=== PATIENT | male | born 1960 | race Caucasian/White ===

== ENCOUNTER 2017-01-30 14:44 | Inpatient (IN) ==
[2017-01-30] MEDS ORDERED: 0.9 % Sodium Chloride 1,000 ML IVC ONE ×3 (15:19→18:45)
--- NOTE | 2017-01-30 15:27 | Emergency Department Note ---
Disposition Clinical Impression: MICKY (acute kidney injury), Dehydration, Abdominal pain Disposition: Admitted As Inpatient Referrals: NO,PCP [Non-Partnered Physician] - Forms: Work/School Release, ED Satisfaction Letter Abdominal Pain HPI - General Chief Complaint: ED Abdominal Pain Stated Complaint: ABD / Back Pain Time Seen by Provider: 01/30/17 15:15 Source: patient Mode of arrival: ambulatory Limitations: no limitations Nursing Notes Reviewed: Yes Vital Signs Reviewed: Yes - History of Present Illness Pt Subjective Complaint: abdominal pain Onset (ago): day(s) (3) Consistency: intermittent Location: diffuse Pain Scale: 10 Quality: dull Radiation: none Improves with: nothing Worsens with: nothing Associated symptoms: Reports: other (States he has not urinated in 3 days) - Related Data Home Medications Medication Instructions Recorded Confirmed Albuterol Sulfate [Albuterol 1 - 2 puff IH Q6H 05/13/16 05/24/16 Inhaler] Beclomethasone Diprop 40mcg [QVAR 1 puff IH BID 05/13/16 05/24/16 40 mcg] Ferrous Sulfate 325 mg PO DAILY 05/13/16 05/24/16 Gabapentin 800 mg PO QID 05/13/16 05/24/16 Lisinopril [Zestril] 10 mg PO DAILY 05/13/16 05/24/16 Zolpidem [Ambien] 10 mg PO HS 05/13/16 05/24/16 metFORMIN [Glucophage] 1,000 mg PO BID 05/13/16 05/24/16 Previous Rx's Medication Instructions Recorded hydrOXYzine HCl [Hydroxyzine HCl] 25 mg PO BID PRN #60 tab 05/14/16 Metoclopramide [Reglan] 10 mg PO Q6HR PRN #30 tablet 05/27/16 Omeprazole [PriLOSEC] 20 mg PO BID #30 capsule. 05/27/16 OxyCODONE Immed Rel [Roxicodone 5 5 mg PO Q6HR PRN #14 tablet 05/27/16 MG] Ondansetron [Zofran ODT] 8 mg SL Q4HR #7 tab.rapdis 08/03/16 OxyCODONE/APAP 5/325 [Percocet 2 each PO Q6HR PRN #15 tablet 08/03/16 5/325 MG] Allergies Allergy/AdvReac Type Severity Reaction Status Date / Time Penicillins [PCN] Allergy Rash Verified 01/30/17 16:11 acetaminophen [From Tylenol] AdvReac Nausea Verified 01/30/17 16:11 propoxyphene AdvReac Nausea Verified 01/30/17 16:11 [From Darvocet-N] tramadol AdvReac See Verified 01/30/17 16:11 Comments All systems ED: reviewed and negative except as stated. Constitutional: Denies: fever, chills, weakness Gastrointestinal: Denies: vomiting Abdominal Pain PMH - Past Medical History Medical history: Reports: diabetes, GERD, hypertension Male Surgical History: Reports: appendectomy Psychiatric history: Reports: anxiety, depression, prior suicide attempt, previous psychiatric hospitalization - Social History Smoking status: Current every day smoker Alcohol use: Reports: none Drug use: Reports: marijuana Physical Exam - General Limitations: no limitations General appearance: alert, in no apparent distress - Head Head exam: atraumatic, normocephalic, normal inspection - Eye Eye exam: Present: normal appearance, PERRL, EOMI - Expanded Eye Exam Pupils: Left: reactive - ENT ENT exam: mucous membranes dry - Expanded ENT Exam External ear exam: Present: normal external inspection Mouth exam: Present: normal external inspection Teeth exam: Present: normal inspection Throat exam: Present: normal inspection - Neck Neck exam: Present: normal inspection, full ROM, trachea midline - Chest Chest inspection: Present: normal inspection, symmetric chest wall rise - Respiratory Respiratory exam: Present: normal lung sounds bilaterally - Cardiovascular Cardiovascular exam: Present: regular rate, normal rhythm, normal heart sounds - Abdominal Exam Abdominal exam: Present: soft Abdominal tenderness: Present: LLQ, mild - Extremities Exam Extremities exam: Present: normal inspection, full ROM. Absent: tenderness, pedal edema - Expanded Upper Extremity Exam Shoulder exam: Present: normal inspection, full ROM Arm exam: Present: normal inspection, full ROM Elbow exam: Present: normal inspection, full ROM Forearm/Wrist exam: Present: normal inspection, full ROM Hand exam: Present: normal inspection, full ROM Vascular exam: Normal: capillary refill, radial pulse - Expanded Lower Extremity Exam Hip/Pelvis exam: Present: normal inspection, full ROM Upper leg exam: Present: normal inspection, full ROM Knee exam: Present: normal inspection, full ROM Lower leg exam: Present: normal inspection, full ROM Ankle exam: Present: normal inspection, full ROM Foot/toe exam: Present: normal inspection, full ROM Neurovascular/Tendon exam: Absent: motor deficit, sensory deficit, tendon deficit - Back Exam Back exam: Present: normal inspection, full ROM. Absent: tenderness - Neurological Exam Neurological exam: Present: alert, oriented X3 - Expanded Neurological Exam Patient oriented to: Present: person, place, time Coma Scale Eye Opening: Spontaneous Coma Scale Motor Response: Obeys Commands Coma Scale Verbal Response: Oriented Coma Scale Total: 15 - Psychiatric Psychiatric exam: Present: normal affect, normal mood - Skin Skin exam: Present: warm, dry, intact, normal color Course Vital Signs Temperature 97.4 F L 01/30/17 14:53 Pulse Rate 89 01/30/17 14:53 Respiratory Rate 18 01/30/17 14:53 Blood Pressure 98/51 01/30/17 14:53 O2 Sat by Pulse Oximetry 94 01/30/17 14:53 Temperature 97.4 F L 01/30/17 14:53 Pulse Rate 86 01/30/17 18:18 Respiratory Rate 20 01/30/17 18:18 Blood Pressure 114/59 01/30/17 18:18 O2 Sat by Pulse Oximetry 96 01/30/17 18:18 Oxygen Delivery Oxygen Delivery Room Air Abdominal Pain - Lab Data Result diagrams: 01/30/17 15:57 01/30/17 16:46 Lab Results 01/30/17 01/30/17 01/30/17 Range/Units 15:57 16:46 16:46 WBC 14.7 H (4.3-11.1) K/mcL RBC 4.70 (4.19-5.50) M/mcL Hgb 13.2 (12.9-16.9) g/dL Hct 41.4 (37.5-50.1) % MCV 88.1 (83.0-100.0) fL MCH 28.1 (28.0-33.3) pg MCHC 31.9 (31.6-35.5) g/dL RDW 14.2 (11.5-14.5) % Plt Count 203 (140-400) K/mcL MPV 11.8 (9.4-12.4) fL Immature Gran % 0.3 (0-4) % Seg Neutrophils % 64.9 % Lymphocytes % 23.1 % Monocytes % 8.2 % Eosinophils % 3.0 % Basophils % 0.5 % Neutrophils # 9.5 H (1.6-8.9) K/mcL Lymphocytes # 3.4 (0.6-4.6) K/mcL Monocytes # 1.2 (0.0-1.3) K/mcL Eosinophils # 0.4 (0.0-0.6) K/mcL Basophils # 0.1 (0.0-0.2) K/mcL PT 11.9 (9.4-12.1) Seconds INR 1.1 APTT 29.4 (26.0-36.0) Seconds Sodium 137 (136-145) mEq/L Potassium 4.5 (3.5-4.5) mEq/L Chloride 95 L (98-109) mEq/L Carbon Dioxide 26 (19-29) mEq/L BUN 58 H (8-26) mg/dL Creatinine 12.93 H (0.72-1.25) mg/dL Est GFR ( Amer) 5 L (> 60) Est GFR (Non-Af Amer) 4 L (> 60) BUN/Creatinine Ratio 4 L (6-26) Glucose 106 H (70-99) mg/dL Calculated Osmolality 301 H (280-300) Lactic Acid (0.5-2.2) mmol/L Calcium 9.3 (8.6-10.8) mg/dL Total Bilirubin 0.5 (0.2-1.2) mg/dL Direct Bilirubin 0.2 (0.0-0.5) mg/dL Indirect Bilirubin 0.3 (0.0-1.2) mg/dL AST 8 (5-34) Units/L ALT < 6 (0-55) Units/L Alkaline Phosphatase 75 (38-126) Units/L Troponin I (0-0.03) ng/mL Serum Total Protein 8.1 (6.0-8.3) g/dL Albumin 3.8 (3.5-5.0) g/dL Globulin 4.3 H (2.4-3.5) g/dL Albumin/Globulin Ratio 0.9 L (1.1-2.2) Amylase 46 (25-125) Units/L Lipase 19 (8-78) Units/L 01/30/17 01/30/17 Range/Units 16:46 16:46 WBC (4.3-11.1) K/mcL RBC (4.19-5.50) M/mcL Hgb (12.9-16.9) g/dL Hct (37.5-50.1) % MCV (83.0-100.0) fL MCH (28.0-33.3) pg MCHC (31.6-35.5) g/dL RDW (11.5-14.5) % Plt Count (140-400) K/mcL MPV (9.4-12.4) fL Immature Gran % (0-4) % Seg Neutrophils % % Lymphocytes % % Monocytes % % Eosinophils % % Basophils % % Neutrophils # (1.6-8.9) K/mcL Lymphocytes # (0.6-4.6) K/mcL Monocytes # (0.0-1.3) K/mcL Eosinophils # (0.0-0.6) K/mcL Basophils # (0.0-0.2) K/mcL PT (9.4-12.1) Seconds INR APTT (26.0-36.0) Seconds Sodium (136-145) mEq/L Potassium (3.5-4.5) mEq/L Chloride (98-109) mEq/L Carbon Dioxide (19-29) mEq/L BUN (8-26) mg/dL Creatinine (0.72-1.25) mg/dL Est GFR ( Amer) (> 60) Est GFR (Non-Af Amer) (> 60) BUN/Creatinine Ratio (6-26) Glucose (70-99) mg/dL Calculated Osmolality (280-300) Lactic Acid 1.8 (0.5-2.2) mmol/L Calcium (8.6-10.8) mg/dL Total Bilirubin (0.2-1.2) mg/dL Direct Bilirubin (0.0-0.5) mg/dL Indirect Bilirubin (0.0-1.2) mg/dL AST (5-34) Units/L ALT (0-55) Units/L Alkaline Phosphatase (38-126) Units/L Troponin I 0.02 (0-0.03) ng/mL Serum Total Protein (6.0-8.3) g/dL Albumin (3.5-5.0) g/dL Globulin (2.4-3.5) g/dL Albumin/Globulin Ratio (1.1-2.2) Amylase (25-125) Units/L Lipase (8-78) Units/L Critical Care Time Critical Care Time: Yes Total Critical Care Time: 40 Attestation: Critical care performed: Time is exclusive of separately billable procedures. Time includes: direct patient care, patient reassessment, coordination of patient care, interpretation of data (laboratory data, radiology data, and respiratory data), review of patient's medical records, medical consultation and documentation of patient care. Procedures included in critical care time: Procedures excluded from critical care time:
[2017-01-30] MEDS ORDERED: Ondansetron 4 MG/2 ML VIAL IVP ONE (15:55)
[2017-01-30] MEDS ORDERED: *HR* HYDROmorphone (PF) 1 MG/ML SYRINGE IVP ONE (15:55)
[2017-01-30 16:09] LABS: Basophils # 0.1 K/mcL (0.0-0.2); Basophils % 0.5 %; Eosinophils # 0.4 K/mcL (0.0-0.6); Hematocrit 41.4 % (37.5-50.1); Hemoglobin 13.2 g/dL (12.9-16.9); Immature Granulocytes % 0.3 % (0-4); Lymphocytes # 3.4 K/mcL (0.6-4.6); Lymphocytes % 23.1 %; Mean Corpuscular HGB Conc 31.9 g/dL (31.6-35.5); Mean Corpuscular Hemoglobin 28.1 pg (28.0-33.3); Mean Corpuscular Volume 88.1 fL (83.0-100.0); Mean Platelet Volume 11.8 fL (9.4-12.4); Monocytes # 1.2 K/mcL (0.0-1.3); Monocytes % 8.2 %; Neutrophils # 9.5 K/mcL (1.6-8.9); Platelet Count 203 K/mcL (140-400); Red Cell Distribution Width 14.2 % (11.5-14.5); Segmented Neutrophils % 64.9 %
[2017-01-30] MEDS ORDERED: 0.9 % Sodium Chloride 1,000 ML ONE (16:28)
[2017-01-30 17:09] LABS: Albumin 3.8 g/dL (3.5-5.0); Albumin/Globulin Ratio 0.9 (1.1-2.2); Alkaline Phosphatase 75 Units/L (38-126); Amylase 46 Units/L (25-125); Aspartate Amino Transferase 8 Units/L (5-34); BUN/Creatinine Ratio 4 (6-26); Bilirubin,Direct 0.2 mg/dL (0.0-0.5); Bilirubin,Indirect 0.3 mg/dL (0.0-1.2); Bilirubin,Total 0.5 mg/dL (0.2-1.2); Blood Urea Nitrogen 58 mg/dL (8-26); Calcium 9.3 mg/dL (8.6-10.8); Carbon Dioxide 26 mEq/L (19-29); Chloride 95 mEq/L (98-109); Globulin 4.3 g/dL (2.4-3.5); Glucose 106 mg/dL (70-99); Lipase 19 Units/L (8-78); Osmolality,Calculated 301 (280-300); Potassium 4.5 mEq/L (3.5-4.5); Sodium 137 mEq/L (136-145); Total Protein 8.1 g/dL (6.0-8.3); eGFR For African Americans 5 (> 60); eGFR For Non-African Americans 4 (> 60)
[2017-01-30 17:10] LABS: Alanine Aminotransferase < 6 Units/L (0-55)
[2017-01-30 17:25] LABS: INR 1.1; Prothrombin Time 11.9 Seconds (9.4-12.1)
[2017-01-30 17:27] LABS: Activated Partial Thrombo Time 29.4 Seconds (26.0-36.0)
--- NOTE | 2017-01-30 20:31 | Internal Med History&Physical ---
Date of Encounter: 01/30/17 Time of Encounter: 20:29 Assessment and Plan (1) Nausea & vomiting Current visit: No Status: Acute Unclear etiology at this time, but patient has had intermittent issues with this for years and has seen GI as outpatient Likely exacerbated by GERD/victoriano's esophagus in setting of gastroparesis due to uncontrolled diabetes Cannot rule out cannabinoid hyperemesis syndrome, will obtain UDS He may benefit from gastric emptying study Make NPO for now and support with IVF, PPI, anti-emetics Qualifiers: Vomiting type: unspecified Vomiting Intractability: unspecified Qualified Code(s): R11.2 - Nausea with vomiting, unspecified (2) MICKY (acute kidney injury) Current visit: Yes Status: Acute Cr upon admission was 12.93 and he does not have any baseline renal insufficiency Likely pre-renal etiology in setting of dehydration from nausea/vomiting Obtain UA, urine studies, monitor I/O's (3) Enteritis Current visit: Yes Status: Suspected CT scan demonstrated mild inflammation near terminal ileum, which does not correspond to patient's location of pain No indication for antibiotics at this time, but will support with IVF, analgesics (4) Non-insulin dependent type 2 diabetes mellitus Current visit: Yes Status: Chronic Stop hold diabetic medications while inpatient on low dose SSI ACHS accuchecks Last a1c checked in May was 6.1, will recheck in AM (5) Hypertension Current visit: Yes Status: Chronic Blood pressures stable since admission Will hold Lisinopril in setting of MICKY Qualifiers: Qualified Code(s): I10 - Essential (primary) hypertension (6) DVT prophylaxis Current visit: Yes Status: Acute Heparin 5000 units BID Internal Medicine - H&P: HPI Admitted From: Home Plans for Post Hospital Care: Home History of present illness: Mr. Shaffer is a 56 year old male who presents to emergency department with nausea, vomiting and abdominal pain. He said the nausea and vomiting started about 3 days ago and he developed diffuse abdominal pain that was relieved with vomiting. He states the vomit has been constant throughout the day and is nonbloody and nonbilious and "looks like Mountain Dew". He admits to drinking 8 -12 cans of Mountain Dew a day and is aware he needs to cut down. Of note, he has also not had any urine output in the last 3 days, and only had small amount since admission. He did admit to having multiple ER visits for abdominal pain, and attributes symptoms of being dehydrated and GERD. He denies any problems with his kidneys in the past and has not had any stones as well. Patient denies any fever, chest pain, shortness of breath, constipation, diarrhea. He has not had any recent surgeries, and only had an appendectomy when he was younger. Denies any recent changes in medications or diet. Past Med Surg Social Fam HX - Past Medical History Medical history: COPD, diabetes, GERD, hypertension Psychiatric history: anxiety, depression, prior suicide attempt, previous psychiatric hospitalization - Past Surgical History Surgical History: other - Social History Smoking Status: Current every day smoker Packs per day: 1 Smokeless Tobacco Status: No Alcohol use: none Drug use: marijuana Internal Medicine - H&P: Meds Albuterol Sulfate [Albuterol Inhaler] 1 - 2 puff IH Q6H 05/13/16 [History] Beclomethasone Diprop 40mcg [QVAR 40 mcg] 1 puff IH BID 05/13/16 [History] Ferrous Sulfate 325 mg PO DAILY 05/13/16 [History] Gabapentin 800 mg PO QID 05/13/16 [History] Lisinopril [Zestril] 10 mg PO DAILY 05/13/16 [History] Zolpidem [Ambien] 10 mg PO HS 05/13/16 [History] metFORMIN [Glucophage] 1,000 mg PO BID 05/13/16 [History] hydrOXYzine HCl [Hydroxyzine HCl] 25 mg PO BID PRN #60 tab 05/14/16 [Rx] Metoclopramide [Reglan] 10 mg PO Q6HR PRN #30 tablet 05/27/16 [Rx] Omeprazole [PriLOSEC] 20 mg PO BID #30 capsule. 05/27/16 [Rx] OxyCODONE Immed Rel [Roxicodone 5 MG] 5 mg PO Q6HR PRN #14 tablet 05/27/16 [Rx] Ondansetron [Zofran ODT] 8 mg SL Q4HR #7 tab.rapdis 08/03/16 [Rx] OxyCODONE/APAP 5/325 [Percocet 5/325 MG] 2 each PO Q6HR PRN #15 tablet 08/03/16 [Rx] Allergies Penicillins [PCN] Allergy (Verified 01/30/17 16:11) Rash acetaminophen [From Tylenol] Adverse Reaction (Verified 01/30/17 16:11) Nausea propoxyphene [From Darvocet-N] Adverse Reaction (Verified 01/30/17 16:11) Nausea tramadol Adverse Reaction (Verified 01/30/17 16:11) See Comments PATIENT STATES THAT THIS MEDICATION MAKES HIM "JITTERY" All Systems PM: A 10-system review of systems was performed and is negative for pertinent findings except as documented above in the HPI. - Constitutional Constitutional: chills, no fever(s), no night sweats - EENT Eyes: no change in vision, no discharge, no pain, no photophobia Ears: no ear discharge, no ear pain, no tinnitus Nose, mouth and throat: no dysphagia, no nasal discharge, no neck pain, no sore throat - Cardiovascular Cardiovascular ROS IM: no chest pain, no diaphoresis, no dyspnea, no lightheadedness, no palpitations, no syncope - Respiratory Respiratory: no cough, no dyspnea, no wheezing, no excessive phlegm production - Gastrointestinal Gastrointestinal: abdominal pain (vesta-umbilical), nausea, vomiting, no diarrhea , no hematemesis, no hematochezia, no melena - Musculoskeletal Musculoskeletal ROS IM: back pain (low back, left sided), no numbness, no tingling - Integumentary Integumentary IM: no rash, no unusual bruising - Neurological Neurological ROS: no confusion, no convulsions, no focal weakness, no numbness, no tingling, no tremor(s) - Hematologic/Lymphatic Hematologic/Lymphatic: no easy bruising - Constitutional Vitals: Temp Pulse Resp BP Pulse Ox 97.5 F L 89 18 137/82 93 01/30/17 19:44 01/30/17 19:44 01/30/17 19:44 01/30/17 19:44 01/30/17 19:44 General appearance: Present: cooperative, pleasant, no acute distress, obese, answers questions appropriately - Head Head exam: Present: atraumatic, normocephalic - Eye Eye exam: Present: PERRL, conjuntiva pink, sclera anicteric - Neck Neck exam general surgery: Present: supple, trachea midline. Absent: lymphadenopathy - Respiratory Respiratory exam: Present: CTAB. Absent: accessory muscle use, rales, rhonchi, wheezes - Cardiovascular Cardiovascular exam: Present: RRR, +S1, +S2. Absent: diastolic murmur, gallop, rubs, systolic murmur - GI/Abdominal GI/Abdominal exam: Present: normal bowel sounds, soft, tenderness (vesta- umbilical), no peritoneal signs. Absent: distended, firm, guarding Additional comments: transverse scar noted in RLQ s/p appy - Extremities Exam Extremities exam: Present: warm, radial pulses palpable and symetrical. Absent : calf tenderness, cyanotic, pedal edema - Neurological Exam Neurological exam: Present: alert, no focal deficits. Absent: facial droop, speech deficit - Skin Skin exam: Present: dry, intact Internal Med - H&P Results - Labs CBC & Chem 7: 01/30/17 15:57 01/30/17 16:46
[2017-01-30] MEDS ORDERED: Ondansetron ODT 4 MG TAB.RAPDIS SL PRN (21:08)
[2017-01-30] MEDS ORDERED: *HR* Dextrose 50 % in Water (Syg) 50 ML SYRINGE IVP PRN (21:08)
[2017-01-30] MEDS ORDERED: Dextrose Gel 15 GM PO PRN ×2 (21:08)
[2017-01-30] MEDS ORDERED: Naloxone 0.4 MG/ML INJ IVP PRN (21:08)
[2017-01-30] MEDS ORDERED: D5% in Water 1,000 ML IVC PRN (21:08)
[2017-01-30] MEDS ORDERED: hydrOXYzine pamoate 25 MG CAPSULE PO PRN (21:14)
[2017-01-30] MEDS: *HR* Morphine 2 MG/ML SYRINGE IVP PRN (21:41)
[2017-01-30] MEDS: *HR* Promethazine 25 MG/ML VIAL IVP PRN (21:41)
[2017-01-31] MEDS: 0.9 % Sodium Chloride 1,000 ML IVC SCH ×4 (03:27→23:10)
[2017-01-31 04:50] LABS: Basophils # 0.1 K/mcL (0.0-0.2); Basophils % 0.6 %; Eosinophils # 0.4 K/mcL (0.0-0.6); Eosinophils % 3.4 %; Hematocrit 36.6 % (37.5-50.1); Hemoglobin 11.9 g/dL (12.9-16.9); Immature Granulocytes % 0.5 % (0-4); Lymphocytes # 3.3 K/mcL (0.6-4.6); Lymphocytes % 30.6 %; Mean Corpuscular HGB Conc 32.5 g/dL (31.6-35.5); Mean Corpuscular Hemoglobin 29.1 pg (28.0-33.3); Mean Corpuscular Volume 89.5 fL (83.0-100.0); Mean Platelet Volume 12.2 fL (9.4-12.4); Monocytes # 0.8 K/mcL (0.0-1.3); Monocytes % 7.6 %; Neutrophils # 6.2 K/mcL (1.6-8.9); Platelet Count 148 K/mcL (140-400); Red Blood Count 4.09 M/mcL (4.19-5.50); Red Cell Distribution Width 14.4 % (11.5-14.5); Segmented Neutrophils % 57.3 %
[2017-01-31 05:07] LABS: Hemoglobin A1C 6.2 %
[2017-01-31 05:17] LABS: Calcium 8.1 mg/dL (8.6-10.8); Potassium 4.3 mEq/L (3.5-4.5)
[2017-01-31] MEDS ORDERED: Pantoprazole 40 MG VIAL IVP SCH (06:30)
[2017-01-31] MEDS: *HR* Morphine 2 MG/ML SYRINGE IVP PRN ×2 (06:40→11:03)
[2017-01-31] MEDS: *HR* Promethazine 25 MG/ML VIAL IVP PRN (06:41)
[2017-01-31] MEDS ORDERED: Gabapentin 400 MG CAPSULE PO SCH (09:00)
[2017-01-31] MEDS: Insulin LISPRO 300 UNITS/3 ML VIAL SQ SCH ×3 (09:17→18:22)
[2017-01-31] MEDS: *HR* Heparin 5,000 UNIT/ML VIAL SQ SCH ×2 (09:23→18:28)
--- NOTE | 2017-01-31 09:39 | Nephrology Consult Note ---
Date of Encounter: 01/31/17 Time of Encounter: 09:34 Assessment and Plan (1) MICKY (acute kidney injury) Current Visit: Yes Status: Acute 56 y/o male presents with N/V, hypotensive on admission and found to have MICKY. Hypotension corrected with fluids. Hx of drinking 6-8 cans of mountain dew. Had no urine production since Tuesday. MICKY unknown cause Scr 12.93 without significant improvement after fluid resuscitation UOP of 240cc this morning Hypotensive on admission and responded to fluid resuscitation. Uric acid elevated. NO previous hx of kidney disease. Denies hx of kidney stones. CT abdomen/pelvis shows no evidence of hydronephrosis, obstruction States his mother had kidney removed but unkown why. On etodolac outpatient denies illicit drug use, alcohol use hgA1c 6.2: prediabetes Plan: Likely prerenal with ATN. Presented with hypotension BP 60/40 Will obtain urine electrolytes, urinalysis, urine osmolality, serum osmolality, urine creatinine If urine function does not improve will obtain retroperitoneal US Continue IVF avoid nephrotoxins: nsaids, and contrast History of Present Illness - Reason for Consult Consult date: 01/31/17 Acute Kidney Injury - Chief Complaint N/V - History of Present Illness 52-year-old male presents with history of 3 days of nausea, vomiting. Patient had been having abdominal pain located mid abdomen which are sharp which improves with vomiting. States abdominal pain has been there for four years and he has had previous work up for it including upper endoscopy which showed evidence of gastritis. Denied hematemesis. States he drinks 6-8 cans of Mountain Dew daily to relieve his dry mouth and this is what he vomited up. Furthermore he states last Tuesday he stopped producing urine. In the past patient has worked for abdominal pain and acute cholecystitis was ruled out. He denies having any urine, kidney, bladder issues in the past. He denies history of kidney stones. States that his mother had one kidney removed but does not know why. He denies chest pain, shortness of breath, diarrhea, blurry vision. Patient's creatinine is 12 on admission. This morning he started producing urine and currently has a total output of 240 mL. Denies hematuria, dysuria. States his vomiting has resolved and has mild nausea and is tolerating water intake. Denies history of heart disease. Denies use of alcohol, illicit drugs, and ethylene glycol. States his main fluid intake is Mountain Dew. Past Med Surg Social Fam HX - Past Medical History Medical history: COPD, diabetes, GERD, hypertension Psychiatric history: anxiety, depression, prior suicide attempt, previous psychiatric hospitalization - Past Surgical History Surgical History: other - Social History Smoking Status: Current every day smoker Packs per day: 1 Smokeless Tobacco Status: No Alcohol use: none Drug use: marijuana Medications and Allergies Albuterol Sulfate [Albuterol Inhaler] 1 - 2 puff IH Q6H 05/13/16 [History] Beclomethasone Diprop 40mcg [QVAR 40 mcg] 1 puff IH BID 05/13/16 [History] Gabapentin 800 mg PO QID 05/13/16 [History] Lisinopril [Zestril] 10 mg PO DAILY 05/13/16 [History] metFORMIN [Glucophage] 1,000 mg PO BID 05/13/16 [History] Ondansetron [Zofran ODT] 8 mg SL Q4HR #7 tab.rapdis 08/03/16 [Rx] Etodolac [Lodine] 400 mg PO BID 01/31/17 [History] Hyoscyamine Sulfate [Hyoscyamine Sulfate ER] 0.375 mg PO BID 01/31/17 [History] OxyCODONE/APAP 5/325 [Percocet 5/325 MG] 1 tab PO Q6HR PRN 01/31/17 [History] Pantoprazole Sodium [Protonix] 40 mg PO DAILY 01/31/17 [History] clonazePAM [Klonopin] 1 mg PO TID 01/31/17 [History] Allergies Penicillins [PCN] Allergy (Verified 01/30/17 16:11) Rash acetaminophen [From Tylenol] Adverse Reaction (Verified 01/30/17 16:11) Nausea propoxyphene [From Darvocet-N] Adverse Reaction (Verified 01/30/17 16:11) Nausea tramadol Adverse Reaction (Verified 01/30/17 16:11) See Comments PATIENT STATES THAT THIS MEDICATION MAKES HIM "JITTERY" Review of Systems All Systems review (narrative): Constitutional: Denies fever, chills HEENT: Denies headache, vision changes, neck pain, sore throat, rhinorrhea Heart: Denies chest pain palpitations Lungs: Denies shortness of breath cough Abdomen: Reports nausea, vomiting, abdominal pain Back: Denies back pain Kidney: Denies dysuria, hematuria. Reports anuria Extremities: Denies swelling, pain Neuro: Denies numbness, and tingling Exam - Vital Signs Vital signs: Initial Vital Signs Temp Pulse Resp BP Pulse Ox 97.4 F L 89 18 98/51 94 01/30/17 14:53 01/30/17 14:53 01/30/17 14:53 01/30/17 14:53 01/30/17 14:53 Vital Signs - Last 8 Hours Temp Pulse Resp BP Pulse Ox 01/31/17 06:40 97.9 F 86 14 99/62 94 01/31/17 04:49 97.4 F L 87 17 104/65 93 Intake and Output 01/30/17 01/31/17 01/31/17 23:59 07:59 15:59 Intake Total 0 / 0 240 / 240 Output Total 0 / 0 Balance 0 / 0 240 / 240 Intake: Oral 0 / 0 240 / 240 Output: Urine 0 / 0 Other: Meal Breakfast Percent of Meal Consumed 80% Weight 104.1 kg Blood Glucose* 86 Patient Weight 01/31/17 23:59 Weight 104.1 kg - General Appearance Exam: Disheveled EENT: PERRL, mucous membranes moist Neck: no JVD, supple Respiratory: clear Cardiology: no edema, regular rate, regular rhythm, normal S1, normal S2 Gastrointestinal: normoactive bowel sounds Additional Comments: Mid abdominal tenderness bandlike fashion Integumentary: no rash, warm and dry Neurologic: no focal deficit, no asterixis Additional Comments: Alert and oriented to self, situation but not to time. Musculoskeletal: no deformities, no erythema, no cyanosis Psychiatric: mood/affect appropriate Results - Lab Results 01/31/17 04:34 01/31/17 04:34 Most recent lab results Calcium 8.1 mg/dL (8.6-10.8) L 01/31/17 04:34 Consult Discharge Plan - Plan Referrals: Beka Velásquez, PAC [Primary Care Provider] - (called and left message...)
[2017-01-31] MEDS: Gabapentin 400 MG CAPSULE PO SCH ×4 (09:51→20:54)
[2017-01-31] MEDS: Nicotine 14 MG PATCH.TD24 TD SCH (09:59)
[2017-01-31] MEDS ORDERED: 0.9 % Sodium Chloride 1,000 ML IVC ONE ×2 (10:17→11:33)
[2017-01-31] MEDS: Beclomethasone 40mcg MDI IH SCH ×2 (11:01→20:42)
[2017-01-31 11:44] LABS: Uric Acid 12.3 mg/dL (3.5-7.2)
[2017-01-31] MEDS: *HR* OxyCODONE Immed Rel 5 MG TABLET PO PRN ×2 (15:15→20:55)
[2017-01-31 15:25] LABS: Creatinine,Urine 271 mg/dL; Protein/Creatinine Ratio,Urine 0.23 mg/mg (0-0.20)
--- NOTE | 2017-01-31 15:27 | Internal Med Progress Note ---
<Jose Luis Gongora - Last Filed: 01/31/17 15:25> Date of Encounter: 01/31/17 Time of Encounter: 09:00 - Assessment and plan (1) MICKY (acute kidney injury) Current Visit: Yes Status: Acute Assessment and plan: Creatinine on admission was 12.93. Patient has no baseline renal insufficiency. -Patient's acute kidney injury is likely a result of his dehydration due to his cyclical vomiting. -This morning, patient's creatinine was 12.33. -Patient was given fluids. -Nephrology has been consulted. Dr. Reina agrees the patient should be treated with aggressive IV hydration. -Intake and output will be closely monitored. -Patient has been advised to increase fluid intake. -Urine will be collected. -Closely monitor electrolytes. (2) Abdominal pain Current Visit: Yes Status: Acute Assessment and plan: Patient notes that he has right lower quadrant and left lower quadrant abdominal pain, as well as some pain in the left upper quadrant. -This pain is reproducible on palpation. -Pain has improved since admission. -Patient denies having any epigastric pain at the moment. -Patient's lipase was not elevated. -CT scan of the abdomen did not reveal any acute changes. -Imaging only revealed some thickening of the terminal ileum, which does not correspond to the location of his pain. Qualifiers: Abdominal location: generalized Qualified Code(s): R10.84 - Generalized abdominal pain (3) Nausea & vomiting Current Visit: No Status: Acute Assessment and plan: Patient's nausea and vomiting was possibly due to his use of marijuana. -Patient has had intermittent issues with vomiting in the past. -Patient denies having any nausea or vomiting was morning. -Continue to monitor intake and output. Qualifiers: Vomiting type: unspecified Vomiting Intractability: unspecified Qualified Code(s): R11.2 - Nausea with vomiting, unspecified (4) Hypertension Current Visit: Yes Status: Chronic Assessment and plan: On admission, patient's blood pressure was very low. -Likely secondary to his volume loss. -This morning, patient's blood pressure was 99/62. -Patient's blood pressure medications have been held since admission. Qualifiers: Qualified Code(s): I10 - Essential (primary) hypertension (5) Enteritis Current Visit: Yes Status: Suspected Assessment and plan: Patient presented with abdominal pain, primarily in the right lower and left lower quadrant. -CT scan of the abdomen was performed, which revealed some inflammation and wall thickening of the terminal ileum. -No indications for antibiotics. - Subjective Interval history: Patient was seen and examined at bedside this morning. He states that he still has some abdominal pain, primarily in the right lower and left lower quadrants. This pain is reproducible by palpation. He also notes that he still has some pain in his left upper quadrant. He denies having any epigastric pain. He denies having any nausea or vomiting this morning. He notes that he did urinate a small amount this morning. He denied having any pain on urination. He also denied any changes to the urine appearance. He currently denies nausea , vomiting, fever or chills, or dizziness. Patient has no other complaints at this time - Constitutional Vitals: Temp Pulse Resp BP Pulse Ox 98.1 F 77 14 102/66 94 01/31/17 10:50 01/31/17 10:50 01/31/17 11:03 01/31/17 10:50 01/31/17 11:03 General appearance: Present: cooperative, pleasant, no acute distress, obese, answers questions appropriately - Head Head exam: Present: atraumatic, normocephalic - Neck Neck exam general surgery: Present: supple, trachea midline. Absent: lymphadenopathy - Respiratory Respiratory exam: Present: CTAB. Absent: accessory muscle use, rales, rhonchi, wheezes - Cardiovascular Cardiovascular exam: Present: RRR, +S1, +S2. Absent: diastolic murmur, gallop, rubs, systolic murmur - GI/Abdominal GI/Abdominal exam: Present: normal bowel sounds, soft, tenderness, no peritoneal signs Additional comments: Patient notes having mild tenderness in the right lower and left lower quadrants. He also has some pain in the left upper quadrant. This pain is reproducible by palpation. He denies having epigastric pain. - Extremities Exam Extremities exam: Present: warm, radial pulses palpable and symetrical - Skin Skin exam: Present: dry, intact Internal Medicine: Result - Labs CBC & Chem 7: 01/31/17 04:34 01/31/17 04:34 Labs: Short CBC 01/31/17 Range/Units 04:34 WBC 10.8 (4.3-11.1) K/mcL Hgb 11.9 L (12.9-16.9) g/dL Hct 36.6 L (37.5-50.1) % Plt Count 148 (140-400) K/mcL Neutrophils # 6.2 (1.6-8.9) K/mcL BMP 01/31/17 04:34 Sodium 137 Potassium 4.3 Chloride 100 Carbon Dioxide 27 BUN 58 H Creatinine 12.33 H Glucose 93 Calcium 8.1 L - ABG Interpretation ABG results: PT/INR, D-dimer PT 11.9 Seconds (9.4-12.1) 01/30/17 16:46 - Impressions Impressions Chest X-Ray 01/31/17 07:04 IMPRESSION: Atelectasis. D/ / Kacy Ulloa MD / Kacy Ulloa MD Interpreting Provider: Kacy Ulloa MD Consult Discharge Plan - Plan Referrals: Beka Velásquez, PAC [Primary Care Provider] - (called and left message...) <Craig Conteh - Last Filed: 01/31/17 17:52> Date of Encounter: 01/31/17 - Constitutional Vitals: Temp Pulse Resp BP Pulse Ox 97.7 F 74 16 91/55 94 01/31/17 16:25 01/31/17 16:25 01/31/17 16:25 01/31/17 16:25 01/31/17 11:03 Internal Medicine: Result - Labs CBC & Chem 7: 01/31/17 04:34 01/31/17 04:34 Labs: Short CBC 01/31/17 Range/Units 04:34 WBC 10.8 (4.3-11.1) K/mcL Hgb 11.9 L (12.9-16.9) g/dL Hct 36.6 L (37.5-50.1) % Plt Count 148 (140-400) K/mcL Neutrophils # 6.2 (1.6-8.9) K/mcL BMP 01/31/17 04:34 Sodium 137 Potassium 4.3 Chloride 100 Carbon Dioxide 27 BUN 58 H Creatinine 12.33 H Glucose 93 Calcium 8.1 L - ABG Interpretation ABG results: PT/INR, D-dimer PT 11.9 Seconds (9.4-12.1) 01/30/17 16:46 - Impressions Impressions Chest X-Ray 01/31/17 07:04 IMPRESSION: Atelectasis. D/ / Kacy Ulloa MD / Kacy Ulloa MD Interpreting Provider: Kacy Ulloa MD Retroperitoneum Ultrasound 01/31/17 16:30 IMPRESSION: Unremarkable bilateral renal ultrasound. Moderate to large postvoid residual within the urinary bladder. Ureteral jets are not documented. D/ / Donavon King MD / Donavon King MD Interpreting Provider: Donavon King MD - Attending Attestation I examined this patient and my medical decision-making was reviewed with the Resident Physician on 01/31/17. I agree with the documented findings, disposition and treatment plan as described except to the extent set forth below. 56 Y/O M with hx of DM, fairly controlled, THC abuse, admitted for hypovolemic shock following several episodes of nausea and vomiting. He also has MICKY- prerenal and ATN, secondary to hypovolemia. In addition, patient was drinking lots of pop at home and taking NSAIDS, ACEI and Metformin His urine output has been ow despite receiving multiple fluid boluses On examination, he is disheveled, not in any form of distress, speaks full sentences, alert, awake and oriented X3, moves all limbs equally, he has asterixis, CTAB, HS S1, S2, Abdomen with RLQ and LLQ tenderness. Extremities with no edema Labs and Imaging reviewed: MICKY with BUN/Cr: 50/12.33, elevated uric acid and serum osmolality, normal LFTs. Abd CT scan showed no obstruction but showed possible pneumonitis and infectious enteritis. Urine studies are pending A/P: *Hypovolemic shock, responding to IVF hydration, continue aggressive IVF hydration *MICKY: Continue hydration, avoid nephrotoxins, monitor I/O, follow urine work up , may send proteinuria work up if patient has proteinuria, and obtain renal USS. Encourage liberal fluid intake. Strict I/O monitoring. Nephrology is following, no indication for dialysis as of now *Enteritis: Infectious per CT, patient with abdominal pain, give flagyl po *DM: Daily controlled, continue insulin. Monitor FS. Advance diet as tolerated. Rest of details as in residents documentation
[2017-01-31 16:50] LABS: Amphetamine Screen,Urine Positive ng/mL (Cutoff=1000); Barbiturate Screen,Urine Negative ng/mL (Cutoff=200); Benzodiazepines Screen,Urine Positive ng/mL (Cutoff=200); Cannabinoid Screen,Urine Positive ng/mL (Cutoff = 50); Cocaine Screen,Urine Negative ng/mL (Cutoff= 300); Opiate Screen,Urine Positive ng/mL (Cutoff=300); Phencyclidine Screen,Urine Negative ng/mL (Cutoff=25)
[2017-01-31 19:11] LABS: Osmolality,Urine 317 mOsm/kg (300-1090)
[2017-01-31] MEDS: metroNIDAZOLE 500 MG TABLET PO SCH (20:55)
[2017-02-01] MEDS: Insulin LISPRO 300 UNITS/3 ML VIAL SQ SCH ×2 (00:23→05:48)
[2017-02-01] MEDS: *HR* OxyCODONE Immed Rel 5 MG TABLET PO PRN ×3 (00:56→09:16)
[2017-02-01 01:15] LABS: Bilirubin,Urine Negative (Negative); Blood,Urine Small (Negative); Clarity,Urine Clear (Clear); Color,Urine Yellow (Yellow); Glucose,Urine (UA) Normal (Normal); Ketones,Urine Negative (Negative); Leukocyte Esterase,Urine Negative (Negative); Nitrite,Urine Negative (Negative); Protein,Urine 30 mg/dL (Neg-Trace); Specific Gravity,Urine 1.013 (1.010-1.025); Urobilinogen,Urine Normal (Normal)
[2017-02-01 01:22] LABS: Bacteria,Urine Few per hpf (None-Few); RBC,Urine 0-3 per hpf (0-3); Squamous Epithelial Cell,Urine Few per lpf (None-Few); WBC,Urine 0-3 per hpf (0-3)
[2017-02-01] MEDS ORDERED: Mag Hydrox/Al Hydrox/Simeth 30 ML UDC PO ONE (01:54)
[2017-02-01] MEDS: *HR* Heparin 5,000 UNIT/ML VIAL SQ SCH (05:04)
[2017-02-01 05:52] LABS: Basophils # 0.1 K/mcL (0.0-0.2); Basophils % 0.5 %; Eosinophils # 0.4 K/mcL (0.0-0.6); Eosinophils % 3.8 %; Hematocrit 36.7 % (37.5-50.1); Hemoglobin 12.1 g/dL (12.9-16.9); Immature Granulocytes % 0.9 % (0-4); Immature Platelets 10.9 % (1.1-6.1); Lymphocytes # 3.2 K/mcL (0.6-4.6); Lymphocytes % 29.2 %; Mean Corpuscular Hemoglobin 28.7 pg (28.0-33.3); Mean Platelet Volume 13.8 fL (9.4-12.4); Monocytes # 1.3 K/mcL (0.0-1.3); Monocytes % 11.6 %; Platelet Count 101 K/mcL (140-400); Red Blood Count 4.22 M/mcL (4.19-5.50); Red Cell Distribution Width 14.2 % (11.5-14.5)
[2017-02-01 06:29] LABS: Neutrophils # 5.9 K/mcL (1.6-8.9)
[2017-02-01 06:31] LABS: Platelet Estimate Decreased (Normal)
[2017-02-01 07:30] LABS: Calcium 8.3 mg/dL (8.6-10.8); Potassium 4.4 mEq/L (3.5-4.5)
[2017-02-01 08:01] VITALS: BP 118/69
[2017-02-01] MEDS: Nicotine 14 MG PATCH.TD24 TD SCH (09:16)
[2017-02-01] MEDS: Gabapentin 400 MG CAPSULE PO SCH (09:16)
[2017-02-01] MEDS: metroNIDAZOLE 500 MG TABLET PO SCH (09:16)
--- NOTE | 2017-02-01 09:32 | Nephrology Progress Note ---
Date of Encounter: 02/01/17 Time of Encounter: 09:29 - Assessment and Plan (1) MICKY (acute kidney injury) Current Visit: Yes Status: Acute Scr improving-5.54, down from 12.33 yesterday GFR up to 11, was 5 yesterday Encouraged patient to drink water; no soda UOP improving-700ml yesterday (2) Hypertension Current Visit: Yes Status: Chronic per primary team Qualifiers: Hypertension type: essential hypertension Qualified Code(s): I10 - Essential (primary) hypertension (3) Non-insulin dependent type 2 diabetes mellitus Current Visit: Yes Status: Chronic per primary team Subjective Principal diagnosis: MICKY Interval history: Patient seen and examined. Still wanting to drink soda Objective - Vital Signs Vital signs: Vital Signs Temp Pulse Resp BP Pulse Ox 02/01/17 07:26 98.2 F 76 16 118/69 100 02/01/17 04:20 98.4 F 80 20 117/72 95 02/01/17 00:12 98.5 F 77 16 100/61 95 01/31/17 21:19 97.4 F L 64 17 119/70 98 01/31/17 20:43 16 95 01/31/17 16:25 97.7 F 74 16 91/55 01/31/17 11:03 14 94 01/31/17 10:50 98.1 F 77 12 102/66 91 Intake and Output 01/31/17 02/01/17 02/01/17 23:59 07:59 15:59 Intake Total 1120 / 1120 1120 / 1120 Output Total 400 / 400 700 / 700 Balance 720 / 720 420 / 420 Intake: IV Fluids 1000 / 1000 1000 / 1000 0.9 % Sodium Chloride 1, 1000 / 1000 1000 / 1000 000 ML @ 150 mls/hr IVC . Q6H40M TIFF Rx#:[id number] Oral 120 / 120 120 / 120 Output: Urine 400 / 400 700 / 700 Other: # Voids 2 Weight 104.3 kg Blood Glucose* 80 103 Patient Weight 02/01/17 23:59 Weight 104.3 kg - General Appearance General appearance: Present: obese EENT: Present: ATNC, mucous membranes moist, hearing intact, vision intact Neck: Present: supple Respiratory: Present: clear Cardiology: Present: no edema, normal S1, normal S2 Gastrointestinal: Present: no tenderness, no guarding, obese Integumentary: Present: warm and dry Neurologic: Present: alert and oriented x3 Psychiatric: Present: mood/affect appropriate, cooperative - Lab 02/01/17 04:31 02/01/17 06:19 Most recent lab results Calcium 8.3 mg/dL (8.6-10.8) L 02/01/17 06:19 Urine Creatinine 271 mg/dL 01/31/17 15:00 Urine Sodium 48.0 mEq/L 01/31/17 15:00 Urine Total Protein 63 mg/dL (1-14) H 01/31/17 15:00 Consult Discharge Plan - Plan Referrals: Beka Velásquez, PAC [Primary Care Provider] - (called and left message..01/31@0900. left message again @[phone])
[2017-02-01] MEDS ORDERED: Folic Acid 1 MG TABLET PO SCH (10:45)
[2017-02-01] MEDS ORDERED: Thiamine (B-1) 100 MG TABLET PO SCH (10:45)
[2017-02-01] MEDS: Beclomethasone 40mcg MDI IH SCH (10:49)
--- NOTE | 2017-02-01 11:00 | Discharge Summary ---
<Jose Luis Gongora - Last Filed: 02/01/17 11:33> Date of Encounter: 02/01/17 Time of Encounter: 10:15 - Discharge Diagnosis (1) MICKY (acute kidney injury) Priority: Primary Status: Acute Comments: When patient was first admitted to the hospital, patient's creatinine was 12.93. He has no baseline renal insufficiency. -Patient's acute kidney injury was likely a result of dehydration secondary to cyclical vomiting. -Patient's creatinine has improved since admission. Creatinine was 5.54 this morning. -Patient has been given IV fluids and has increased his fluid intake. -Patient has been advised to continue drinking fluids at home. -Follow-up labs have been ordered 2 days from now. Patient has been instructed to go to the lab on 02/03/2017 to obtain labs, which will be faxed to his PCP. Patient will follow-up with PCP. (2) Nausea & vomiting Priority: Secondary Status: Acute Comments: Since his admission, patient has not experienced any nausea or vomiting. Patient has said has been advised to decrease his use of marijuana. Patient is also advised to increase his intake of fluids. Qualifiers: Vomiting type: unspecified Vomiting Intractability: unspecified Qualified Code(s): R11.2 - Nausea with vomiting, unspecified (3) Abdominal pain Priority: Secondary Status: Acute Comments: When patient was first admitted at the hospital, he had pain in his right lower quadrant and left lower quadrant, as well as some pain in his epigastric area. -Patient's abdominal pain has improved since admission. -CT scan of the abdomen did not show any acute changes. -Imaging only revealed mild inflammation in the terminal portion of the ileum. -Patient does not complain of abdominal pain this morning. -Continue home medications. Qualifiers: Abdominal location: generalized Qualified Code(s): R10.84 - Generalized abdominal pain (4) Hypertension Priority: Secondary Status: Chronic Comments: On admission patient's blood pressure was very low. -Patient blood pressure has improved since admission. -Patient's blood pressure this morning was 118/69. Qualifiers: Hypertension type: essential hypertension Qualified Code(s): I10 - Essential (primary) hypertension (5) Enteritis Priority: Secondary Status: Suspected - Discharge Medications Home Medications: Albuterol Sulfate [Albuterol Inhaler] 1 - 2 puff IH Q6H 05/13/16 [History] Beclomethasone Diprop 40mcg [QVAR 40 mcg] 1 puff IH BID 05/13/16 [History] Gabapentin 800 mg PO QID 05/13/16 [History] Lisinopril [Zestril] 10 mg PO DAILY 05/13/16 [History] metFORMIN [Glucophage] 1,000 mg PO BID 05/13/16 [History] Ondansetron [Zofran ODT] 8 mg SL Q4HR #7 tab.rapdis 08/03/16 [Rx] Etodolac [Lodine] 400 mg PO BID 01/31/17 [History] Hyoscyamine Sulfate [Hyoscyamine Sulfate ER] 0.375 mg PO BID 01/31/17 [History] OxyCODONE/APAP 5/325 [Percocet 5/325 MG] 1 tab PO Q6HR PRN 01/31/17 [History] Pantoprazole Sodium [Protonix] 40 mg PO DAILY 01/31/17 [History] clonazePAM [Klonopin] 1 mg PO TID 01/31/17 [History] Allergies/Adverse Reactions: Allergies Penicillins [PCN] Allergy (Verified 01/30/17 16:11) Rash acetaminophen [From Tylenol] Adverse Reaction (Verified 01/30/17 16:11) Nausea propoxyphene [From Darvocet-N] Adverse Reaction (Verified 01/30/17 16:11) Nausea tramadol Adverse Reaction (Verified 01/30/17 16:11) See Comments PATIENT STATES THAT THIS MEDICATION MAKES HIM "JITTERY" Procedures/tests Complete & Pending: Procedures Performed prior 72 hours Category Date Time Status Retroperitoneal Ultrasound - Complete [US Exams 01/31/17 16:30 Draft retroperitoneal comp] [US] Stat Date of admission: 01/30/17 21:48 Primary care physician: Beka Velásquez Consults: 01/31/17 08:50 Consult to Nephrology [CONS] Routine Consulting Provider: [facility] [place]/ALFRED/BETO/YONATHAN Reason for Consult: MICKY Call Completed: No Discharging clinician: Jose Luis Gongora Anticipated date of discharge: 02/01/17 - Patient Status Disposition: Home, Self-Care Condition: Good Functional capacity at discharge: independent ambulation Overall status at discharge: patient is progressing back to baseline - Discharge Instructions Follow Up With: Beka Velásquez, PAC [Primary Care Provider] - (called and left message..01/31@0900. left message again @[phone] Patient has an appointment on Tuesday per patient family) - Diet and Activity Activity: resume usual activities as tolerated Diet: advance to your usual diet Hospital course: Mr. Aston Shaffer is a 56-year-old male who first presented to the hospital with the chief complaint of nausea, vomiting, and abdominal pain over the course of 3 days. Patient also had no urine output. Patient also had a low blood pressure at home. Blood pressure was 98/51 on presentation. Patient also complained of abdominal pain in his right lower quadrant and left lower quadrant , which he has had for quite some time. This pain was reproduced by palpation. CT scan of the abdomen and pelvis was performed in order to rule out the possibility of an acute process in the abdomen or potential urinary obstruction. CT scan only revealed slight inflammatory changes in the terminal ileum, and did not reveal any acute changes in the abdomen. No urinary obstruction or stones were observed on imaging. Patient was diagnosed with severe dehydration secondary to vomiting. Patient admitted to drinking a large amount of Mountain Dew, about 12 cans per day. He also admitted to smoking marijuana. Patient's creatinine was elevated at 12.93, and patient was diagnosed with acute renal failure secondary to dehydration. Patient was given IV fluids, and was told to increase his intake of fluids. Initially, patient did not produce a large amount of urine. Eventually however, patient was able to produce urine after an increased intake of fluid. Urinalysis was performed, and patient's intake and output was closely observed. Nephrology was consulted for this patient. Nephrology stated that patient's condition was likely secondary to prerenal azotemia and ATN secondary to nausea and vomiting. Nephrology advised increased fluid intake and IV hydration. On his date of discharge, patient's creatinine is 5.54. His blood pressure this morning was 118/69. He denies having any nausea, vomiting, fever, chills, or abdominal pain today. Patient expressed interest in going home today. He was advised that he needed to increase his fluid intake. He was offered the option of staying one additional day, so that we could continue to monitor him and give him IV fluids. He declined this offer. - Time Spent with Patient Total time spent providing and/or coordinating discharge services: Greater than 30 minutes - Constitutional Vitals: Temp Pulse Resp BP Pulse Ox 98.2 F 76 16 118/69 94 02/01/17 07:26 02/01/17 07:26 02/01/17 10:51 02/01/17 07:26 02/01/17 10:51 General appearance: Present: cooperative, pleasant, no acute distress, obese, answers questions appropriately <Nate Perez Matt - Last Filed: 02/01/17 14:37> Date of Encounter: 02/01/17 Procedures/tests Complete & Pending: Procedures Performed prior 72 hours Category Date Time Status Retroperitoneal Ultrasound - Complete [US Exams 01/31/17 16:30 Completed retroperitoneal comp] [US] Stat Date of admission: 01/30/17 21:48 Primary care physician: Beka Velásquez Consults: 01/31/17 08:50 Consult to Nephrology [CONS] Routine Consulting Provider: [facility] Z[facility]re[facility]/ALFRED/BETO/YONATHAN Reason for Consult: MICKY Call Completed: No Hospital course: Mr. Shaffer is a 56 year old male - Time Spent with Patient Total time spent providing and/or coordinating discharge services: - Constitutional Vitals: Temp Pulse Resp BP Pulse Ox 98.2 F 76 16 118/69 94 02/01/17 07:26 02/01/17 07:26 02/01/17 10:51 02/01/17 07:26 02/01/17 10:51 - Attending Attestation Acute renal failure secondary to severe dehydration likely due to acute tubular necrosis exacerbated by lisinopril, Possible enteritis viral versus bacterial. No need of antibiotics. Stop lisinopril, metformin, etodolac until follow-up with the nephrology Follow-up with primary care physician within the next 7 days. Drink plenty of fluids, avoid alcohol, quit smoking, stop using drugs. The patient was given the option to stay an additional day, he preferred to be released. Nephrology/Dr. Reina in agreement to his discharge. Time spent on this discharge: 40 minutes. I examined this patient and my medical decision-making was reviewed with the Resident Physician. I agree with the documented findings, disposition and treatment plan as described except to the extent set forth below.
[2017-02-01] MEDS ORDERED: Insulin LISPRO 300 UNITS/3 ML VIAL SQ SCH ×2 (11:30→21:00)
== END 2017-02-01 12:06 | disposition home or self-care (01) | DRG 469 ==
LOC: EMEROO 14:44 → 2ANU 14:44 → SUATTDRO 21:48
PROVIDERS: ADMIT Internal Medicine; ATTEND Internal Medicine